=== PATIENT | male | born 1985 | race Caucasian/White ===

== ENCOUNTER → 2020-03-26 | Day surgery (SDC) | payer OTHER ==
[2020-03-23 10:28] LABS: BASOPHILS # (AUTO) 0.1 (0.0-0.1); BASOPHILS % 0.9 % (0.0-1.0); EOSINOPHILS # (AUTO) 0.1 (0.0-0.4); EOSINOPHILS % 1.9 % (0.0-6.0); HEMATOCRIT 46.8 % (38.2-49.6); LYMPHOCYTES % 31.2 % (18.0-39.1); MEAN CORPUSCULAR HEMOGLOBIN 29.6 pg (28-32); MEAN CORPUSCULAR HGB CONC 34.2 g/dL (31-35); MEAN CORPUSCULAR VOLUME 86.7 fL (81-99); MONOCYTES # (AUTO) 0.5 (0.2-0.8); NEUTROPHILS # (AUTO) 3.8 (2.1-6.9); NEUTROPHILS % 58.7 % (38.7-80.0); PLATELET COUNT 279 x10e3/uL (140-360); RED CELL DISTRIBUTION WIDTH 12.8 % (11.7-14.4)
[~2020-03-26] MED LIST: BUPIVACAINE 0.25% 30ML SDV INJ ONE; DEXAMETHASONE SOD PHOS INJ 4 MG/ML VIAL ONE; FENTANYL CITRATE/PF 100MCG/2 ML INJ ONE; HYDROCODONE/APAP 7.5MG-325MG 1 EA TAB ONE; KETOROLAC TROMETHAMINE 30 MG/ML VIAL ONE; LIDOCAINE 1% W/EPINEPHRINE 20 ML VIAL ONE; LIDOCAINE HCL 2% LOCAL INJ 5 ML SDV VIAL INJ ONE; MIDAZOLAM HCL 2 MG/2 ML VIAL ONE; MORPHINE SULFATE INJ 10 MG/ML ONE; ONDANSETRON HCL INJ 2MG/ML 2ML 2 MG/ML VIAL ONE; PROPOFOL IV EMULSION 10 MG/ML 20 ML VIAL ONE; SEVOFLURANE INHAL SOLN 250 ML PEN BTL ONE; SUDAFED 12 HOU120 MG PO
--- NOTE | 2020-03-26 13:16 | Operative Report ---
DATE OF PROCEDURE: 03/26/2020 SURGEON: Florencio Grande MD PREOPERATIVE DIAGNOSIS: Right inguinal hernia. POSTOPERATIVE DIAGNOSIS: Right inguinal hernia. OPERATION PERFORMED: Repair of right inguinal hernia with extended Prolene hernia system. ASSISTANT PROFESSOR IN FAMILY STUDIES: Antionette SHAW. ANESTHESIA: General. COMPLICATIONS: None. ESTIMATED BLOOD LOSS: Minimal. DESCRIPTION OF PROCEDURE: With the patient lying in bed in the supine position under good general anesthesia. The abdomen was prepped with Betadine solution and draped in the usual manner. A right inguinal incision was made was carried down through the subcutaneous tissue down to the external oblique aponeurosis. External oblique was then opened along the length of its fibers and the external inguinal ring was opened. The cord was then mobilized and retracted. Exploration of the cord did not reveal the presence of any indirect hernia sac. There was, however, a large bulging hernia in the direct space. The direct hernia was then imbricated with a pursestring suture of 2-0 silk. After this was done, the preperitoneal space was then entered right through the internal ring and a pocket was created without any difficulty. An extended Prolene hernia system was placed in the preperitoneal space and the underlay patch was deployed without any problems. The overlay patch was then placed over the floor and split inferolaterally to allow for passage of the cord. The mesh was then sutured to the conjoined tendon and the inguinal ligament using interrupted sutures of 2-0 Vicryl. The whole area was thoroughly irrigated. Perfect hemostasis was ascertained. All layers were infiltrated on the way out with solution of 0.25% Marcaine and 1% lidocaine mixed in equal parts. The external oblique aponeurosis was closed with a running suture of 2-0 Vicryl, the subcutaneous tissue was approximated with 3-0 plain, and the skin was closed with clips. A dressing was applied. The sponge, lap, and needle count was correct. The patient tolerated the procedure well and returned to the recovery room in stable condition. MD FABIOLA Galvez/KAREENL /[id number]
[2020-03-26 14:10] VITALS: BP 113/83
== END | disposition home or self-care (01) ==
LOC: OR 08:04
PROVIDERS: ATTEND Surgery
DX: K40.90 Unilateral inguinal hernia, without obstruction or gangrene, not specified as recurrent (principal); Z01.812 Encounter for preprocedural laboratory examination; Z11.59 Encounter for screening for other viral diseases
CPT/HCPCS: 36415; 49505; 85025; C1781; J1100; J1885; J2001; J2250; J2270; J2405; J2704; J3010; U0002

== ENCOUNTER → 2020-04-16 | Day surgery (SDC) | payer OTHER ==
[~2020-04-16] MED LIST changes: -HYDROCODONE/APAP 7.5MG-325MG 1 EA TAB ONE; -MORPHINE SULFATE INJ 10 MG/ML ONE; +TYLENOL325 M2 PO
[2020-04-16 11:00] VITALS: BP 111/78
--- NOTE | 2020-04-16 12:10 | Operative Report ---
DATE OF PROCEDURE: 04/16/2020 SURGEON: Florencio Grande MD PREOPERATIVE DIAGNOSIS: Left inguinal hernia. POSTOPERATIVE DIAGNOSIS: Left inguinal hernia. OPERATION PERFORMED: Repair of left inguinal hernia with large Prolene Hernia System. INTERPRETER TRANSLATOR: VALERIA Napier. ANESTHESIA: General. COMPLICATIONS: None. ESTIMATED BLOOD LOSS: Minimal. DESCRIPTION OF PROCEDURE: With the patient lying in bed in the supine position under good general anesthesia, the abdomen was prepped with Betadine solution and draped in the usual manner. The left inguinal incision was made. It was carried down through the subcutaneous tissue down to the external oblique aponeurosis. External oblique was then opened along the length of its fibers and external inguinal ring was opened. The cord was then mobilized and retracted. Exploration of the cord revealed the presence of a small lipoma of the cord, which was from the cord structures, ligated with 2-0 Vicryl and divided. There was no indirect hernia sac present. There was, however, bulging defect in the direct space representing a moderate-size direct hernia. This was imbricated with a pursestring suture of 2-0 silk. After this was done, the preperitoneal space was then entered right through the internal ring and a pocket was created without any difficulty. A large Prolene Hernia System was then placed in the preperitoneal space and the underlay patch was deployed without any problems. The overlay patch was then placed over the floor and split inferolaterally to allow for passage of the cord. The mesh was sutured to the conjoined tendon and the inguinal ligament using interrupted sutures of 2-0 Vicryl. All layers were infiltrated on the way out with solution of 0.25% Marcaine and 1% lidocaine mixed in equal parts. The external oblique aponeurosis was then closed with a running suture of 2-0 Vicryl. The subcutaneous tissue was approximated with 3-0 plain and the skin was closed with clips. A dressing was applied. The sponge, lap, and needle count was correct. The patient tolerated the procedure well and returned to the recovery room in stable condition. MD FABIOLA Galvez/PAXTON /[id number]
== END | disposition home or self-care (01) ==
LOC: OR 06:43
PROVIDERS: ATTEND Surgery
DX: K40.90 Unilateral inguinal hernia, without obstruction or gangrene, not specified as recurrent (principal); D17.6 Benign lipomatous neoplasm of spermatic cord; Z01.812 Encounter for preprocedural laboratory examination; Z11.59 Encounter for screening for other viral diseases
CPT/HCPCS: 49505; C1781; J1100; J1885; J2001; J2405; J2704; U0002; J2250; J3010